=== PATIENT | male | born 1980 | race Caucasian/White ===

== ENCOUNTER 2017-06-04 21:39 | Emergency (ER) | payer MEDICAID ==
[~2017-06-04] VITALS: Ht 177.8 cm; Wt 90.9 kg
[~2017-06-04 21:39] MED LIST: NOCURR
[2017-06-04] MEDS ORDERED: ACETAMINOPHEN/CODEINE 300-30 MG TABLET PO ONE (22:30)
[2017-06-04] MEDS ORDERED: IBUPROFEN 600 MG TABLET PO ONE (22:30)
[2017-06-05 00:28] VITALS: BP 119/75
== END 2017-06-05 00:30 | disposition home or self-care (01) ==
LOC: EMS 21:40
DX: S62.521A Displaced fracture of distal phalanx of right thumb, initial encounter for closed fracture (principal); F17.210 Nicotine dependence, cigarettes, uncomplicated; F14.90 Cocaine use, unspecified, uncomplicated; W22.8XXA Striking against or struck by other objects, initial encounter; Y93.89 Activity, other specified; Y92.89 Other specified places as the place of occurrence of the external cause; Y99.8 Other external cause status
CPT/HCPCS: 99284; 99406